=== PATIENT | male | born 1970 | race Caucasian/White ===

== ENCOUNTER 2016-06-01 11:43 | Emergency (ER) | payer BC, OTHER ==
--- NOTE | 2016-06-01 12:17 | EDM.PDOC ---
ED HISTORY OF PRESENT ILLNESS - General Chief Complaint: Chest Pain Stated Complaint: CHEST PAIN Time Seen by Provider: 06/01/16 12:16 Source of Information: Reports: Patient History Limitations: Reports: No limitations - History of Present Illness INITIAL COMMENTS - FREE TEXT/NARRATIVE: 45-year-old male presents the ED for evaluation and diffuse left precordial chest pain that is radiating up into the left lateral neck to as high as he is year-old and mastoid process and left facial cheek. Also feels pain pressure discomfort in the left shoulder and left arm radiating down towards the elbow. It also radiates through to the scapula area on the right on the left side. Patient has known coronary disease and in December of this last year underwent 4 stent placement. He did have some discomfort impromptu afterwards and in fact underwent a second angiogram to make sure that none of the stents had occluded. They were all found to be patent. He remains Effient 10mg od and a baby aspirin daily. Reports that he has not missed any medication doses.patient symptoms started last evening and he took 2 nitroglycerin tabs which seemed to ease the chest discomfort substantially but never took it away. He took another further tablet this morning again with some relief of the discomfort. Has no other symptoms in terms of feeling short of breath dizzy lightheaded nausea or vomiting. States he was just on vacation and was actively swimming and getting back into shape and had no troubles with chest pain during exertion. Symptom Onset Date: 05/31/16 Symptom Onset Time: 19:00 Timing/Duration: Reports: Hour(s):, Constant, Getting worse, Gradual onset Severity: moderate Location, General: Reports: chest (left side of neck left back left upper extremity shoulder down to the elbow.), upper extremity, left Quality: Reports: Ache, Pressure, Other (tightness mostly in the precordial aspect of his chest.) Improves with: Reports: Other (nitroglycerin x2 tablets last they did ease the discomfort substantially and again one tablet this morning seemed to ease it substantially as well. He never took it away but it reduced it from a 5 to a one.) Worsens with: Reports: None Context, General: Denies: Activity (he did say that movement or walking makes it necessary worse today.), Exercise, Lifting, Sick contact, Trauma, Other Associated Symptoms (General): Reports: chest pain. 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 Has been taking the Effient as prescribed) - Related Data Allergies/ADRs: Allergies Allergy/AdvReac Type Severity Reaction Status Date / Time No Known Allergies Allergy Verified 12/13/15 10:52 Home Meds: Home Meds Aspirin 81 mg PO DAILY 12/02/15 [History] Nitroglycerin [Nitrostat] 0.4 mg SL Q10M PRN 12/02/15 [History] Prasugrel HCl [Effient] 10 mg PO DAILY 12/02/15 [History] Metoprolol Succinate [Toprol XL] 25 mg PO DAILY 12/13/15 [History] Prasugrel HCl [Effient] 10 mg PO DAILY 06/01/16 [History] Rosuvastatin Calcium [Crestor] 40 mg PO DAILY 06/01/16 [History] amLODIPine Besylate [Norvasc] 2.5 mg PO DAILY 06/01/16 [History] predniSONE [Deltasone] 20 mg PO ASDIRECTED #15 tablet 06/01/16 [Rx] Past Medical History HEENT History: Reports: None Cardiovascular History: Reports: None, CAD Respiratory History: Reports: Other (see below) Other Respiratory History: kilebsiella pneumonia Gastrointestinal History: Reports: Cholelithiasis Genitourinary History: Reports: Prostate disorder, Renal calculus Musculoskeletal History: Reports: None Neurological History: Reports: None Psychiatric History: Reports: None Endocrine/Metabolic History: Reports: None Hematologic History: Reports: None Immunologic History: Reports: None Oncologic (Cancer) History: Reports: None Dermatologic History: Reports: None - Infectious Disease History Infectious Disease History: Reports: Chicken pox - Past Surgical History Head Surgeries/Procedures: Reports: None Cardiovascular Surgical History: Reports: Coronary artery stent Male Surgical History: Reports: Lithotripsy ([facility]) Social & Family History - Tobacco Use Smoking Status *Q: Former Smoker Month Tobacco Last Used: 9 yrs - Caffeine Use Caffeine Use: Reports: Coffee Other Caffeine Use: decaf - Recreational Drug Use Recreational Drug Use: No - Living Situation & Occupation Living situation: Reports: Occupation: employed ED ROS GENERAL - Review of Systems Review Of Systems: See Below Constitutional: Denies: fever, chills, malaise, weakness, fatigue, decreased appetite, weight loss HEENT: Reports: No symptoms Respiratory: Reports: No Symptoms Cardiovascular: Reports: Chest pain, Blood pressure problem (see history of present illness). Denies: Claudication (pressure is usually well controlled but it is elevated at the time of initial examination.), Lightheadedness, Orthopnea Endocrine: Reports: no symptoms GI/Abdominal: Reports: No symptoms : Reports: no symptoms Musculoskeletal: Reports: no symptoms Skin: Reports: no symptoms Neurological: Reports: Paresthesia Psychiatric: Reports: No symptoms Hematologic/Lymphatic: Reports: no symptoms ED EXAM, GENERAL - Physical Exam Exam: See Below Exam Limited By: No limitations General Appearance: alert, WD/WN, anxious, mild distress Eye Exam: bilateral eye: nystagmus Throat/Mouth: Normal inspection, Normal lips, Normal teeth, Normal oropharynx Head: atraumatic, normocephalic Neck: normal inspection, supple, non-tender, full range of motion. No: lymphadenopathy (L), lymphadenopathy (R) Respiratory/Chest: no respiratory distress, lungs clear, normal breath sounds, no accessory muscle use, other (cannot elicit any chest wall pain or pain in the rotator cuff tendons of the left shoulder to account for his current pain syndrome.) Cardiovascular: normal peripheral pulses, regular rate, rhythm, no edema, no gallop, no JVD, no murmur, no rub. No: JVD Peripheral Pulses: 2+: radial (L), radial (R), posterior tibial (L), posterior tibial (R), dorsalis pedis (L), dorsalis pedis (R) GI/Abdominal: normal bowel sounds, soft, non tender, no organomegaly, no distention Extremities: normal inspection, normal range of motion, non-tender, normal capillary refill, joint swelling Neurological: alert, oriented, CN II-XII intact, normal cognition Psychiatric: normal affect, normal mood Skin Exam: Warm, Dry, Intact, Normal color, No rash EKG INTERPRETATION EKG Date: 06/01/16 Time: 11:55 Rhythm: NSR Rate (beats/min): 70 [place]: normal P-wave: present QRS: normal ST-T: normal QT: normal EKG Interpretation Comments: no signs of ischemia. Normal ECG Course - Vital Signs Last Recorded V/S: Last Vital Signs Temp 36.3 C 06/01/16 11:57 Pulse 70 06/01/16 15:44 Resp 18 06/01/16 11:57 BP 133/78 06/01/16 15:44 Pulse Ox 98 06/01/16 15:44 - Orders/Labs/Meds Labs: Laboratory Tests 06/01/16 06/01/16 06/01/16 Range/Units 11:25 11:25 11:25 WBC 6.62 (4.23-9.07) K/mm3 RBC 4.97 (4.63-6.08) M/mm3 Hgb 14.6 (13.7-17.5) gm/L Hct 41.3 (40.1-51.0) % MCV 83.1 (79.0-92.2) fl MCH 29.4 (25.7-32.2) pg MCHC 35.4 (32.2-35.5) g/dl RDW Std Deviation 36.5 (35.1-43.9) fL Plt Count 200 (163-337) K/mm3 MPV 9.5 (9.4-12.3) fl Neutrophils % (Manual) 74 H (40-60) % Band Neutrophils % 0 (0-10) % Lymphocytes % (Manual) 26 (20-40) % Atypical Lymphs % 0 % Monocytes % (Manual) 0 L (2-10) % Eosinophils % (Manual) 0 L (0.8-7.0) % Basophils % (Manual) 0 L (0.2-1.2) Platelet Estimate Adequate RBC Morph Comment Normal Sodium 141 (136-145) mEq/L Potassium 3.7 (3.5-5.1) mEq/L Chloride 103 (98-107) mEq/L Carbon Dioxide 28 (21-32) mEq/L Anion Gap 13.7 (5-15) BUN 23 H (7-18) mg/dL Creatinine 1.0 (0.7-1.3) mg/dL Est Cr Clr Drug Dosing 104.31 mL/min Estimated GFR (MDRD) > 60 (>60) mL/min BUN/Creatinine Ratio 23.0 H (14-18) Glucose 92 (74-106) mg/dL Calcium 9.4 (8.5-10.1) mg/dL Total Bilirubin 0.6 (0.2-1.0) mg/dL AST 22 (15-37) U/L ALT 43 (16-63) U/L Alkaline Phosphatase 60 (46-116) U/L CK-MB (CK-2) < 0.5 (0-3.6) ng/ml Troponin I < 0.017 (0.00-0.056) ng/mL C-Reactive Protein < 0.2 (<1.0) mg/dL B-Natriuretic Peptide < 15 (0-100) pg/mL Total Protein 7.3 (6.4-8.2) g/dl Albumin 4.1 (3.4-5.0) g/dl Globulin 3.2 gm/dL Albumin/Globulin Ratio 1.3 (1-2) Meds: Medications Discontinued Medications Generic Name Dose Route Start Last Admin Trade Name Freq PRN Reason Stop Dose Admin Aspirin 324 mg 06/01/16 12:27 06/01/16 12:45 Aspirin PO 06/01/16 12:28 324 mg ONETIME ONE Administration Nitroglycerin/Dextrose 25 mg in 250 mls @ 6 mls/hr 06/01/16 12:30 06/01/16 12 :57 Nitroglycerin 25 Mg/D5w 250 Ml IV 10 mcg/min ASDIRECTED WALKER 6 mls/hr 10 MCG/MIN Administration Sodium Chloride 1,000 mls @ 100 mls/hr 06/01/16 12:30 06/01/16 12:38 Normal Saline IV 100 mls/hr ASDIRECTED [facility] Administration - Radiology Interpretation Free Text/Narrative:: 45-year-old male presents the ED with diffuse left precordial chest discomfort particularly upper left anterior chest radiating up into the left lateral neck mastoid process and given some numbness and tingling in his left facial cheek. Associated pressure discomfort in the left shoulder and states distribution of the scapula. Also pain in the left upper arm shoulder radiating down towards his elbow. Of note the patient on routine screening failed stress test has a strong family history of heart disease. In December of this year he underwent 4 stent placement . [facility] in [facility] by Dr. Pickens. He did have some discomfort afterwards and there was some concern about possible stent occlusion and had a second angiogram which proved all the stents were patent.however this discomfort started last night about 7:00 it has persisted. It eased up substantially after 2 nitroglycerin tablets last night slept not too badly. However this morning the pressure is back again and again took another nitroglycerin tablet with some improvement of symptoms. He therefore came to the ED for cardiac workup. ECG done here shows no signs of ischemia sinus at 70 per minute. BP is 133 /94.it was 158 101 when he came into the ED. Plan one view chest x-ray routine labs to include cardiac markers. Given 4 baby aspirin chewed. Will be started on nitro drip at 10 mcg per minute. - Re-Assessments/Exams Free Text/Narrative Re-Assessment/Exam: 06/01/16 13:10:chest x-ray portable he is completely normal with normal sized cardiac silhouette and clear lung rolle.. 06/01/16 13:34 labs are back reveal normal white count at 6.62 with 74% neutrophils and no bands. Hemoglobin is 14.6 hematocrit of 41.3 platelets 200, 000. Chemistries today shows a sodium of 141 potassium of 3.7. Chloride 103 bicarbonate 28. Creatinine is 1.0. Cardiac markers show a CK-MB of less than 0.5 and troponin of less than 0.017. CRP is less than 0.2 and BNP is less than 15. Therefore at this time there is no active enhancing evidence that his chest discomfort is secondary to cardiac disease. Nitro drip will be stopped. 06/01/16 14:00: she'll be placed on a short course of Deltasone 20 mg with breakfast and supper for 5 days and then one tablet in the morning only for further 5 days to relieve chest wall inflammation. NSAIDs are relatively contraindicated due to her being on Effient. Followup with her normal care provider in 3-5 days time if not markedly improved Departure - Departure Time of Disposition: 14:19 Disposition: Home, Self-Care 01 Condition: fair Clinical Impression: Non-cardiac chest pain Prescriptions: predniSONE [Deltasone] 20 mg PO ASDIRECTED #15 tablet Instructions: Nonspecific Chest Pain, [id number] Referrals: Neftali Sultana Jr, MD [Primary Care Provider] - Forms: ED Department Discharge Additional Instructions: evaluation in the emergency room today in regards to diffuse left precordial chest discomfort radiating up into the left lateral neck and into the left shoulder blade area as well as into the left shoulder and arm down towards the elbow. The pain is certainly characteristic of potential heart pain. The history of recent 4 point cardiac stent placement in December. ECG did not show any signs of heart attack or ischemia changes. Chest x-ray was completely normal. Lab tests also proved to be completely normal with cardiac markers all reported at zero. Therefore chest pain does not appear to be of heart origin. It appears to be due to inflammation likely of nerves within the chest wall which may or may not be related to the cardiac procedures carried out in December. They can certainly be viral in origin as well. Due to been on Effient she cannot take Motrin or Aleve or other anti-inflammatories. Therefore suggested a short course of Deltasone / steroid 20 mg with breakfast and supper for 5 days then one tab in the morning only for further 5 days to relieve pain and inflammation. It is okay to take Tylenol as well for pain relief as needed. See what happens over the next 3-4 days am hoping the inflammation settles down nicely for you. If the pain worsens or fails to improve in 3-4 days' time and further evaluation should be carried out with either your doctor or return to the ED.
[2016-06-01] MEDS ORDERED: Aspirin 81 MG Tab.Chew PO ONE (12:27)
[2016-06-01] MEDS ORDERED: Sodium Chloride 0.9% 1,000 ML IV SCH (12:30)
[2016-06-01] MEDS ORDERED: Nitroglycerin/D5W 25 MG/250 ML BOTTLE IV SCH (12:30)
--- NOTE | 2016-06-01 13:37 | CR ---
Chest: Portable view of the chest was obtained. Comparison: Previous chest x-ray of 12/02/15. Heart size and mediastinum are normal. Lungs are clear. Minimal scoliosis is present within the spine. Impression: 1. Nothing acute is seen on portable chest x-ray. Diagnostic code #2
[2016-06-01 15:48] VITALS: BP 133/78
== END 2016-06-01 14:40 | disposition home or self-care (01) ==
LOC: JD.ED 11:43
DX: R07.89 Other chest pain (principal); Z95.5 Presence of coronary angioplasty implant and graft; Z98.890 Other specified postprocedural states; Z87.891 Personal history of nicotine dependence; Z79.82 Long term (current) use of aspirin; Z79.899 Other long term (current) drug therapy
CPT/HCPCS: 36415; 71010; 80053; 82553; 83880; 84484; 85025; 86140; 96365; 99285; A9270; J7040; 99284

== ENCOUNTER 2016-12-20 19:40 | Emergency (ER) | payer BC ==
[2016-12-20 19:51] VITALS: BP 148/98
[2016-12-20] MEDS ORDERED: Sodium Chloride 0.9% 1,000 ML IV SCH (20:15)
--- NOTE | 2016-12-20 20:17 | EDM.PDOC ---
ED HPI GENERAL MEDICAL PROBLEM - General Chief Complaint: Chest Pain Stated Complaint: CHEST PAIN Time Seen by Provider: 12/20/16 20:14 Source of Information: Reports: Patient History Limitations: Reports: No Limitations - History of Present Illness INITIAL COMMENTS - FREE TEXT/NARRATIVE: 46-year-old male presents to the ED with diffuse left precordial chest pain described as a heavy pressure sensation Exertion perhaps makes it a little bit worse. Note he has a history of coronary disease due to very high cholesterol levels. He had 4 coronary stents placed a year ago November 25, 2015. Was on Plavix for 10 months and is currently off this medication. He is on aspirin daily. Recent checkup with economics consultant indicated that his cholesterol remains too high and he was started back on Crestor. He reports sleeping poorly with some night sweats. No fever identified.feels a heaviness in his chest with associated shortness of breath. No recent travel history or history of DVT. Onset: Gradual (has been present for almost a week continuously worsened slightly as the day goes on. He has limited his physical activity in the workplace due to the chest discomfort. No known chest wall pain or injury.) Onset Date: 12/13/16 Duration: Day(s): Location: Reports: Chest (left precordial chest rating up into the left side of the neck and left arm in the deltoid muscle distribution) Quality: Reports: Ache, Pressure Severity: Moderate Improves with: Reports: None Worsens with: Reports: Other Context: Denies: Activity, Lifting, Sick Contact, Trauma, Other Associated Symptoms: Reports: Chest Pain, Malaise, Shortness of Breath. 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) (none other than his usual medications.) Left Chest Pain Score (Numeric/FACES): 6 - Related Data Allergies Allergy/AdvReac Type Severity Reaction Status Date / Time No Known Allergies Allergy Verified 12/20/16 19:53 Home Meds: Home Meds Aspirin 81 mg PO DAILY 12/02/15 [History] Nitroglycerin [Nitrostat] 0.4 mg SL Q10M PRN 12/02/15 [History] Metoprolol Succinate [Toprol XL] 25 mg PO DAILY 12/13/15 [History] Rosuvastatin Calcium [Crestor] 40 mg PO DAILY 06/01/16 [History] amLODIPine Besylate [Norvasc] 2.5 mg PO DAILY 06/01/16 [History] ClonazePAM [KlonoPIN] 1 mg PO BEDTIME PRN #10 tab 12/20/16 [Rx] Past Medical History HEENT History: Reports: None Cardiovascular History: Reports: None, CAD Respiratory History: Reports: Other (See Below) Other Respiratory History: kilebsiella pneumonia Gastrointestinal History: Reports: Cholelithiasis Genitourinary History: Reports: Prostate Disorder, Renal Calculus Musculoskeletal History: Reports: None Neurological History: Reports: None Psychiatric History: Reports: None Endocrine/Metabolic History: Reports: None Hematologic History: Reports: None Immunologic History: Reports: None Oncologic (Cancer) History: Reports: None Dermatologic History: Reports: None - Infectious Disease History Infectious Disease History: Reports: Chicken Pox - Past Surgical History Head Surgeries/Procedures: Reports: None Cardiovascular Surgical History: Reports: Coronary Artery Stent Social & Family History - Tobacco Use Smoking Status *Q: Former Smoker Used Tobacco, but Quit: Yes Month Tobacco Last Used: 9 - Caffeine Use Caffeine Use: Reports: None Other Caffeine Use: decaf - Recreational Drug Use Recreational Drug Use: No - Living Situation & Occupation Living situation: Reports: Occupation: Employed ED ROS GENERAL - Review of Systems Review Of Systems: See Below Constitutional: Reports: Malaise, Weakness, Fatigue, Night Sweats, Other. Denies: Fever, Chills HEENT: Reports: No Symptoms Respiratory: Reports: Shortness of Breath. Denies: Wheezing, Pleuritic Chest Pain, Cough, Sputum, Hemoptysis, Other Cardiovascular: Reports: Chest Pain (see history of present illness the precordial chest pain reappeared the left neck and left), Blood Pressure Problem ( arm in the deltoid muscle distribution), Dyspnea on Exertion. Denies : Claudication (chronic hypertension), Edema, Lightheadedness, Orthopnea, Palpitations Endocrine: Reports: Fatigue GI/Abdominal: Reports: No Symptoms : Reports: No Symptoms Musculoskeletal: Reports: No Symptoms Skin: Reports: No Symptoms Neurological: Reports: No Symptoms Psychiatric: Reports: No Symptoms Hematologic/Lymphatic: Reports: No Symptoms Immunologic: Reports: No Symptoms ED EXAM, GENERAL - Physical Exam Exam: See Below Exam Limited By: No Limitations General Appearance: Alert, WD/WN, No Apparent Distress Eye Exam: Bilateral Eye: Normal Inspection Head: Atraumatic, Normocephalic Neck: Normal Inspection, Supple, Non-Tender, Full Range of Motion. No: Carotid Bruit, Lymphadenopathy (L), Lymphadenopathy (R), Thyromegaly Respiratory/Chest: No Respiratory Distress, Lungs Clear, Normal Breath Sounds, No Accessory Muscle Use, Other (O2 sats are 98% on room air.) Cardiovascular: Normal Peripheral Pulses, Regular Rate, Rhythm, No Edema, No Gallop, No JVD, No Murmur, No Rub. No: Tachycardia Peripheral Pulses: 2+: Posterior Tibial (L), Posterior Tibial (R), Dorsalis Pedis (L), Dorsalis Pedis (R) GI/Abdominal: Normal Bowel Sounds, Soft, Non-Tender, No Organomegaly, No Distention, No Abnormal Bruit Back Exam: Normal Inspection, Full Range of Motion. No: CVA Tenderness (L), CVA Tenderness (R) Extremities: Normal Inspection, Normal Range of Motion, Non-Tender, No Pedal Edema, Normal Capillary Refill Neurological: Alert, Oriented, CN II-XII Intact, Normal Cognition, Normal Gait Psychiatric: Normal Affect, Normal Mood Skin Exam: Warm, Dry, Intact, Normal Color, No Rash EKG INTERPRETATION EKG Date: 12/20/16 Time: 19:50 Rhythm: NSR Rate (Beats/Min): 60 [place]: Normal P-Wave: Present QRS: Other (early R-wave transition consider right ventricular/septal hypertrophy pattern.) ST-T: Normal QT: Prolonged Course - Vital Signs Last Recorded V/S: Last Vital Signs Temp 35.6 C 12/20/16 19:47 Pulse 63 12/20/16 19:47 Resp 18 12/20/16 19:47 BP 148/98 H 12/20/16 19:47 Pulse Ox 98 12/20/16 19:47 - Orders/Labs/Meds Orders: Active Orders 24 hr Category Date Time Status EKG Documentation Completion [RC] ASDIRECTED Care 12/20/16 19:59 Active Chest 1V Frontal [CR] Stat Exams 12/20/16 20:15 Taken EKG 12 Lead [EK] Stat Ther 12/20/16 19:59 Ordered Labs: Laboratory Tests 0912/20/16 12/20/16 Range/Units 19:50 19:50 19:51 WBC 7.22 (4.23-9.07) K/mm3 RBC 4.71 (4.63-6.08) M/mm3 Hgb 14.3 (13.7-17.5) gm/L Hct 40.8 (40.1-51.0) % MCV 86.6 (79.0-92.2) fl MCH 30.4 (25.7-32.2) pg MCHC 35.0 (32.2-35.5) g/dl RDW Std Deviation 39.9 (35.1-43.9) fL Plt Count 180 (163-337) K/mm3 MPV 9.5 (9.4-12.3) fl Neut % (Auto) Cancelled Lymph % (Auto) Cancelled [place] % (Auto) Cancelled Eos % (Auto) Cancelled Baso % (Auto) Cancelled Neut # (Auto) Cancelled Lymph # (Auto) Cancelled [place] # (Auto) Cancelled Eos # (Auto) Cancelled Baso # (Auto) Cancelled Neutrophils % (Manual) 67 H (40-60) % Band Neutrophils % 0 (0-10) % Lymphocytes % (Manual) 25 (20-40) % Atypical Lymphs % 0 % Monocytes % (Manual) 6 (2-10) % Eosinophils % (Manual) 1 (0.8-7.0) % Basophils % (Manual) 1 (0.2-1.2) Manual Slide Review Cancelled Platelet Estimate Adequate RBC Morph Comment Normal PT 9.9 (8.0-13.0) SECONDS INR 0.91 D-Dimer, Quantitative (0.19-0.59) mg/L Sodium (136-145) mEq/L Potassium (3.5-5.1) mEq/L Chloride (98-107) mEq/L Carbon Dioxide (21-32) mEq/L Anion Gap (5-15) BUN (7-18) mg/dL Creatinine (0.7-1.3) mg/dL Est Cr Clr Drug Dosing Estimated GFR (MDRD) (>60) mL/min BUN/Creatinine Ratio (14-18) Glucose (74-106) mg/dL Calcium (8.5-10.1) mg/dL Total Bilirubin (0.2-1.0) mg/dL AST (15-37) U/L ALT (16-63) U/L Alkaline Phosphatase (46-116) U/L CK-MB (CK-2) < 0.5 (0-3.6) ng/ml Troponin I (0.00-0.056) ng/mL C-Reactive Protein < 0.2 (<1.0) mg/dL NT-Pro-B Natriuret Pep 43 (0-125) pg/mL Total Protein (6.4-8.2) g/dl Albumin (3.4-5.0) g/dl Globulin gm/dL Albumin/Globulin Ratio (1-2) 12/20/16 12/20/16 Range/Units 19:51 19:51 WBC (4.23-9.07) K/mm3 RBC (4.63-6.08) M/mm3 Hgb (13.7-17.5) gm/L Hct (40.1-51.0) % MCV (79.0-92.2) fl MCH (25.7-32.2) pg MCHC (32.2-35.5) g/dl RDW Std Deviation (35.1-43.9) fL Plt Count (163-337) K/mm3 MPV (9.4-12.3) fl Neut % (Auto) Lymph % (Auto) [place] % (Auto) Eos % (Auto) Baso % (Auto) Neut # (Auto) Lymph # (Auto) [place] # (Auto) Eos # (Auto) Baso # (Auto) Neutrophils % (Manual) (40-60) % Band Neutrophils % (0-10) % Lymphocytes % (Manual) (20-40) % Atypical Lymphs % % Monocytes % (Manual) (2-10) % Eosinophils % (Manual) (0.8-7.0) % Basophils % (Manual) (0.2-1.2) Manual Slide Review Platelet Estimate RBC Morph Comment PT (8.0-13.0) SECONDS INR D-Dimer, Quantitative < 0.19 L (0.19-0.59) mg/L Sodium 143 (136-145) mEq/L Potassium 3.5 (3.5-5.1) mEq/L Chloride 105 (98-107) mEq/L Carbon Dioxide 31 (21-32) mEq/L Anion Gap 10.5 (5-15) BUN 21 H (7-18) mg/dL Creatinine 1.0 (0.7-1.3) mg/dL Est Cr Clr Drug Dosing TNP Estimated GFR (MDRD) > 60 (>60) mL/min BUN/Creatinine Ratio 21.0 H (14-18) Glucose 135 H (74-106) mg/dL Calcium 9.7 (8.5-10.1) mg/dL Total Bilirubin 0.6 (0.2-1.0) mg/dL AST 19 (15-37) U/L ALT 42 (16-63) U/L Alkaline Phosphatase 50 (46-116) U/L CK-MB (CK-2) (0-3.6) ng/ml Troponin I < 0.017 (0.00-0.056) ng/mL C-Reactive Protein (<1.0) mg/dL NT-Pro-B Natriuret Pep (0-125) pg/mL Total Protein 7.4 (6.4-8.2) g/dl Albumin 4.1 (3.4-5.0) g/dl Globulin 3.3 gm/dL Albumin/Globulin Ratio 1.2 (1-2) Meds: Medications Discontinued Medications Generic Name Dose Route Start Last Admin Trade Name Nealq PRN Reason Stop Dose Admin Aspirin 324 mg 12/20/16 20:24 12/20/16 20:28 Aspirin PO 12/20/16 20:25 324 mg ONETIME ONE Administration Clonazepam 1 mg 12/20/16 21:40 12/20/16 21:54 Klonopin PO 12/20/16 21:41 1 mg ONETIME ONE Administration Sodium Chloride 1,000 mls @ 125 mls/hr 12/20/16 20:15 12/20/16 20:25 Normal Saline IV 125 mls/hr ASDIRECTED WALKER Administration Nitroglycerin/Dextrose 50 mg in 500 mls @ 6 mls/hr 12/20/16 20:30 12/20/16 21 :21 Nitroglycerin 25 Mg/D5w 250 Ml IV 10 mcg/min ASDIRECTED WALKER 6 mls/hr 10 MCG/MIN Administration - Radiology Interpretation Free Text/Narrative:: 46-year-old male presents the ED with reported left precordial chest pain rating up into the left lateral neck and shoulder and deltoid muscle distribution for the better part of a week. Patient has a history of coronary disease requiring for stent placement a year ago without emboli. His father at age 40 from [place]. Apparently his cholesterol is very high he's never been a smoker. Examination reveals that he is hypertensive at present. ECG does not show any signs of acute ischemic change. Patient was on Plavix up until 2 months ago he took it for 10 months after stent placement. He is currently on aspirin only. Examination essentially is normal.plan routine labs will be treated as if myocardial infarction until known for sure. Nitro drip started 10 cg/min.. Will repeat ASA 324 mg by mouth.routine labs including cardiac markers and CRP ordered. Also BNP but clinically there is no signs of failure but he reports dyspnea on minimal exertion. D-dimer is also been ordered. - Re-Assessments/Exams Free Text/Narrative Re-Assessment/Exam: 12/20/16 20:54chest x-ray done portably is within normal limits. 12/20/16 20:56 Labs are back. White count was 7.22 with differential pending. Hemoglobin is normal at 14.3. Hematocrit is 40.8 pellets are normal on 180,000. PT is 9.9 with an INR of 0.91. D-dimer is normal at less than 0.19. Chemistry shows sodium of 143 potassium low-normal at 3.5. Chloride 15 bicarbonate 31. Anion gap is 10.5 B1 is 21. Glucose mildly elevated 135. Cardiac markers reveal a CK- MB fraction of less than 0.5 staple on I is less than 0.017. C-reactive protein is less than 0.2. I.e. no abdomen maladies appreciated liver or renal function. Therefore essentially has had a normal investigation. Cause of his chest pain is unclear. Does not seem to have any chest wall pain causes. Possible anxiety and stress?. 12/20/16 21:10: spoke to the patient and his quite frankly. Advised of the negative workup for his cardiac function which was relieving to him. It appears he has been under a great deal of stress recently with travel through [facility] over a period of 3 weeks and then excessive workload when he returned back to [place]. This is resulted in very poor sleep habits particularly over the last 3-4 weeks. Therefore I suspect stress anxiety is certainly contributing to his current chest pain. He has no signs or symptoms of reflux disease. I'm therefore going to place him on clonazepam 1 mg at bedtime to help sleep on a when necessary basis. I provided him with 10 tablets is to take 1 at bedtime for the next 5 nights to achieve rest. It plans to take it easy over the weekend and get away from the workplace issues for a period of time. He will follow-up with his personal care physician if not markedly improved in a few days time. Departure - Departure Time of Disposition: 21:36 Disposition: Home, Self-Care 01 Condition: Fair Clinical Impression: Non-cardiac chest pain, Disrupted sleep-wake cycle Prescriptions: ClonazePAM [KlonoPIN] 1 mg PO BEDTIME PRN #10 tab PRN Reason: disrupted sleep pattern Instructions: Nonspecific Chest Pain, [id number], Insomnia Referrals: Neftali Sultana Jr, MD [Primary Care Provider] - Forms: ED Department Discharge Additional Instructions: Evaluation the emergency room tonight in regards to left precordial chest pain radiating up into the left side of neck and into the left arm for the better part of the last week. Fairly continuous discomfort and not necessary worsened by exertion. Associated fatigue midafternoon and disrupted sleep pattern for a lengthy period of time. Complete cardiac workup carried out in the ED because of history of needing for coronary stent placement 1 year ago. Heart tracing did not reveal any signs of ischemia or heart attack. Chest x-ray was normal. Lab tests were also negative for any elevation of cardiac markers and also negative for any blood clots in the lung. In fact blood tests were normal. You don't do not seem to have any problems with heartburn or indigestion or signs or symptoms of esophageal inflammation. Disrupted sleep pattern and stress may be the culprit in the cause of the chest discomfort. Suggest trying to cut down on work load of possible. May try clonazepam 1 mg at bedtime to aid sleep. I would suggest once daily at bedtime for about 5 days and then after that and then on an as-needed basis.follow-up with personal physician if any further problems occur or you're not improved over the next week to 10 days. - My Orders Last 24 Hours: My Active Orders 12/20/16 19:59 EKG Documentation Completion [RC] ASDIRECTED EKG 12 Lead [EK] Stat 12/20/16 20:15 Chest 1V Frontal [CR] Stat - Assessment/Plan Last 24 Hours: My Active Orders 12/20/16 19:59 EKG Documentation Completion [RC] ASDIRECTED EKG 12 Lead [EK] Stat 12/20/16 20:15 Chest 1V Frontal [CR] Stat
[2016-12-20] MEDS ORDERED: Aspirin 81 MG Tab.Chew PO ONE (20:24)
[2016-12-20] MEDS ORDERED: DEXTROSE IV SCH (20:30)
[2016-12-20] MEDS ORDERED: NITROGLYCERIN IV SCH (20:30)
[2016-12-20] MEDS ORDERED: ClonazePAM 1 MG Tab PO ONE (21:40)
--- NOTE | 2016-12-21 12:49 | CR ---
Chest: Portable view of the chest was obtained. Comparison: Previous chest x-ray of 11/01/16. Heart size and mediastinum are within normal limits. Lungs are clear. Bony structures are grossly intact. Impression: 1. Nothing acute is identified on portable chest x-ray. Diagnostic code #1
== END 2016-12-20 21:55 | disposition home or self-care (01) ==
LOC: JD.ED 19:40
DX: R07.89 Other chest pain (principal); G47.23 Circadian rhythm sleep disorder, irregular sleep wake type; Z79.82 Long term (current) use of aspirin; Z79.899 Other long term (current) drug therapy; Z87.891 Personal history of nicotine dependence
CPT/HCPCS: 36415; 71010; 80053; 82553; 83880; 84484; 85025; 85379; 85610; 86140; 93005; 96361; 96365; 99285; A9270; J7040

== ENCOUNTER 2017-02-24 18:47 | Emergency (ER) | payer BC ==
[2017-02-24 19:00] VITALS: BP 154/101
[2017-02-24] MEDS ORDERED: Sodium Chloride 0.9% 10 ML Syringe FLUSH PRN (19:11)
--- NOTE | 2017-02-24 19:15 | EDM.PDOC ---
ED HPI GENERAL MEDICAL PROBLEM - General Chief Complaint: Abdominal Pain Stated Complaint: POSS KIDNEY STONE Time Seen by Provider: 02/24/17 19:00 Source of Information: Reports: Patient, RN Notes Reviewed - History of Present Illness INITIAL COMMENTS - FREE TEXT/NARRATIVE: 46-year-old male comes in with left flank and groin pain. This started yesterday over 24 hours ago, continues with worsening discomfort this evening. The pain actually did start in the left groin area at at times does radiate to the left flank but not clear to the back. The pain is sharp shooting and goes clear down to the left scrotum. In some ways this does feel similar to prior kidney stones he has had. He has had no voiding symptomatology. No fever chills and also no nausea vomiting. The pain is quite intense this evening, he is not taking anything for that. Left Groin Pain Score (Numeric/FACES): 8 - Related Data Allergies Allergy/AdvReac Type Severity Reaction Status Date / Time No Known Allergies Allergy Verified 12/20/16 19:53 Home Meds: Home Meds Aspirin 81 mg PO DAILY 12/02/15 [History] Nitroglycerin [Nitrostat] 0.4 mg SL Q10M PRN 12/02/15 [History] Metoprolol Succinate [Toprol XL] 25 mg PO DAILY 12/13/15 [History] Rosuvastatin Calcium [Crestor] 40 mg PO DAILY 06/01/16 [History] amLODIPine Besylate [Norvasc] 2.5 mg PO DAILY 06/01/16 [History] Gabapentin [Neurontin] 300 mg PO BEDTIME 02/24/17 [History] Levofloxacin [Levaquin] 500 mg PO Q24H #10 tablet 02/24/17 [Rx] metroNIDAZOLE [Flagyl] 500 mg PO Q8H #30 tablet 02/24/17 [Rx] Past Medical History HEENT History: Reports: None Cardiovascular History: Reports: None, CAD, Stents Other Cardiovascular History: 4 stents 1 yr ago Respiratory History: Reports: Other (See Below) Other Respiratory History: kilebsiella pneumonia Gastrointestinal History: Reports: Cholelithiasis Genitourinary History: Reports: Prostate Disorder, Renal Calculus Musculoskeletal History: Reports: None Neurological History: Reports: None Psychiatric History: Reports: None Endocrine/Metabolic History: Reports: None Hematologic History: Reports: None Immunologic History: Reports: None Oncologic (Cancer) History: Reports: None Dermatologic History: Reports: None - Infectious Disease History Infectious Disease History: Reports: Chicken Pox - Past Surgical History Head Surgeries/Procedures: Reports: None Cardiovascular Surgical History: Reports: Coronary Artery Stent Social & Family History - Tobacco Use Smoking Status *Q: Former Smoker Used Tobacco, but Quit: Yes Month Tobacco Last Used: 10 yr - Caffeine Use Caffeine Use: Reports: Coffee Other Caffeine Use: decaf - Recreational Drug Use Recreational Drug Use: No - Living Situation & Occupation Living situation: Reports: Occupation: Employed ED ROS GENERAL - Review of Systems Review Of Systems: See Below Constitutional: Denies: Fever, Chills HEENT: Reports: No Symptoms Respiratory: Denies: Shortness of Breath, Pleuritic Chest Pain Cardiovascular: Denies: Chest Pain GI/Abdominal: Reports: Abdominal Pain (Left lower abdomen, left groin). Denies : Constipation, Diarrhea, Nausea, Vomiting : Reports: No Symptoms Musculoskeletal: Denies: Back Pain Skin: Reports: No Symptoms Neurological: Reports: No Symptoms ED EXAM, RENAL/ - Physical Exam Exam: See Below General Appearance: Alert, Moderate Distress Eye Exam: Bilateral Eye: PERRL Throat/Mouth: Normal Inspection, Normal Oropharynx Head: No: Facial Swelling Neck: Supple, Full Range of Motion Respiratory/Chest: No Respiratory Distress, Lungs Clear, Normal Breath Sounds Cardiovascular: Regular Rate, Rhythm GI/Abdominal: Soft, Tender (Left lower abdomen). No: Guarding, Rebound Back Exam: No: CVA Tenderness (L), CVA Tenderness (R) Neurological: Alert, Oriented, No Motor/Sensory Deficits Skin Exam: Warm, Dry, Normal Color Course - Vital Signs Last Recorded V/S: Last Vital Signs Temp 98.5 F 02/24/17 18:58 Pulse 80 02/24/17 18:58 Resp 20 02/24/17 18:58 BP 154/101 H 02/24/17 18:58 Pulse Ox 96 02/24/17 18:58 - Orders/Labs/Meds Orders: Active Orders 24 hr Category Date Time Status Peripheral IV Care [RC] . DIRECTED Care 02/24/17 19:12 Active Ondansetron [Zofran] Med 02/24/17 19:22 Active 4 mg IVPUSH Q8H PRN Sodium Chloride 0.9% [Saline Flush] Med 02/24/17 19:11 Active 10 ml FLUSH ASDIRECTED PRN metroNIDAZOLE [Flagyl] Med 02/24/17 20:51 Once 500 mg PO ONETIME ONE Peripheral IV Insertion Adult [OM.PC] Stat Oth 02/24/17 19:11 Ordered Medication Orders Ondansetron HCl (Zofran) 4 mg IVPUSH Q8H PRN PRN Reason: Nausea Last Admin: 02/24/17 19:38 Dose: 4 mg Sodium Chloride (Saline Flush) 10 ml FLUSH ASDIRECTED PRN PRN Reason: Keep Vein Open Last Admin: 02/24/17 19:38 Dose: 10 ml Labs: Laboratory Tests 02/24/17 02/24/17 02/24/17 Range/Units 19:30 19:30 19:35 WBC 8.41 (4.23-9.07) K/mm3 RBC 4.71 (4.63-6.08) M/mm3 Hgb 14.1 (13.7-17.5) gm/L Hct 39.9 L (40.1-51.0) % MCV 84.7 (79.0-92.2) fl MCH 29.9 (25.7-32.2) pg MCHC 35.3 (32.2-35.5) g/dl RDW Std Deviation 37.2 (35.1-43.9) fL Plt Count 169 (163-337) K/mm3 MPV 9.4 (9.4-12.3) fl Neut % (Auto) 70.7 H (34.0-67.9) % Lymph % (Auto) 19.9 L (21.8-53.1) % [place] % (Auto) 7.4 (5.3-12.2) % Eos % (Auto) 1.7 (0.8-7.0) Baso % (Auto) 0.2 (0.1-1.2) % Neut # (Auto) 5.95 H (1.78-5.38) K/mm3 Lymph # (Auto) 1.67 (1.32-3.57) K/mm3 [place] # (Auto) 0.62 (0.30-0.82) K/mm3 Eos # (Auto) 0.14 (0.04-0.54) K/mm3 Baso # (Auto) 0.02 (0.01-0.08) K/mm3 Sodium 142 (136-145) mEq/L Potassium 3.4 L (3.5-5.1) mEq/L Chloride 104 (98-107) mEq/L Carbon Dioxide 29 (21-32) mEq/L Anion Gap 12.4 (5-15) BUN 12 (7-18) mg/dL Creatinine 1.0 (0.7-1.3) mg/dL Est Cr Clr Drug Dosing 103.20 mL/min Estimated GFR (MDRD) > 60 (>60) mL/min BUN/Creatinine Ratio 12.0 L (14-18) Glucose 93 (74-106) mg/dL Calcium 9.2 (8.5-10.1) mg/dL Total Bilirubin 1.1 H (0.2-1.0) mg/dL AST 20 (15-37) U/L ALT 34 (16-63) U/L Alkaline Phosphatase 57 (46-116) U/L Total Protein 7.4 (6.4-8.2) g/dl Albumin 4.0 (3.4-5.0) g/dl Globulin 3.4 gm/dL Albumin/Globulin Ratio 1.2 (1-2) Urine Color Yellow (Yellow) Urine Appearance Slt cloudy H (Clear) Urine pH 7.5 (5.0-8.0) Ur Specific [place] 1.020 (1.005-1.030) Urine Protein Negative (Negative) Urine Glucose (UA) Negative (Negative) Urine Ketones Negative (Negative) Urine Occult Blood Negative (Negative) Urine Nitrite Negative (Negative) Urine Bilirubin Negative (Negative) Urine Urobilinogen 0.2 (0.2-1.0) Ur Leukocyte Esterase Negative (Negative) Urine RBC Not seen (0-5) /hpf Urine WBC 0-5 (0-5) /hpf Ur Epithelial Cells 0-5 (0-5) /hpf Urine Bacteria Rare (FEW) /hpf Urine Mucus Not seen (FEW) /hpf Meds: Medications Generic Name Dose Route Start Last Admin Trade Name Freq PRN Reason Stop Dose Admin Ondansetron HCl 4 mg 02/24/17 19:22 02/24/17 19:38 Zofran IVPUSH 4 mg Q8H PRN Administration Nausea Sodium Chloride 10 ml 02/24/17 19:11 02/24/17 19:38 Saline Flush FLUSH 10 ml ASDIRECTED PRN Administration Keep Vein Open Discontinued Medications Generic Name Dose Route Start Last Admin Trade Name Gladis PRN Reason Stop Dose Admin Hydromorphone HCl 1 mg 02/24/17 19:22 02/24/17 19:38 Dilaudid IVPUSH 02/24/17 19:23 1 mg ONETIME ONE Administration Sodium Chloride 500 mls @ 999 mls/hr 02/24/17 19:22 02/24/17 19:38 Normal Saline IV 02/24/17 19:52 999 mls/hr .BOLUS ONE Administration Levofloxacin 750 mg 02/24/17 20:49 Levaquin PO 02/24/17 20:50 Q24H ONE - Re-Assessments/Exams Free Text/Narrative Re-Assessment/Exam: 02/24/17 20:52 CT was done primarily rule in or out kidney stone. There was no kidney stone present in the ureter, no hydronephrosis but CT does show inflammatory signs of diverticulitis. That certainly does fit his symptomatology pattern. We'll treat with oral Cipro and Levaquin now. He is doing much better after Dilaudid 1 mg IV. Discharge instructions as documented Departure - Departure Time of Disposition: 20:53 Disposition: Home, Self-Care 01 Condition: Fair Clinical Impression: Diverticulitis large intestine Qualifiers: Diverticulitis bleeding: without bleeding Diverticulitis complication: without perforation or abscess Qualified Code(s): K57.32 - Diverticulitis of large intestine without perforation or abscess without bleeding - Discharge Information Prescriptions: Levofloxacin [Levaquin] 500 mg PO Q24H #10 tablet metroNIDAZOLE [Flagyl] 500 mg PO Q8H #30 tablet Referrals: Neftali Sultana Jr, MD [Primary Care Provider] - Forms: ED Department Discharge Additional Instructions: Clear liquids and bland diet as tolerated, Tylenol every 6-8 hours as needed for mild to moderate discomfort or hydrocodone if needed for more severe pain, do not take Tylenol and hydrocodone at the same time, do not drive or work when taking hydrocodone. Levaquin 500 mg daily. You have been given an initial dose of 750 mg this evening here in the ED. Flagyl 500 mg 3 times daily with your next dose tomorrow morning. Continue those antibiotics for 10 days or until gone. If still in town follow-up with your regular medical provider in 3-4 days for recheck, return to ED if symptoms worsening in any way. - My Orders Last 24 Hours: My Active Orders 02/24/17 19:11 Sodium Chloride 0.9% [Saline Flush] 10 ml FLUSH ASDIRECTED PRN Peripheral IV Insertion Adult [OM.PC] Stat 02/24/17 19:12 Peripheral IV Care [RC] . DIRECTED 02/24/17 19:22 Ondansetron [Zofran] 4 mg IVPUSH Q8H PRN 02/24/17 20:51 metroNIDAZOLE [Flagyl] 500 mg PO ONETIME ONE - Assessment/Plan Last 24 Hours: My Active Orders 02/24/17 19:11 Sodium Chloride 0.9% [Saline Flush] 10 ml FLUSH ASDIRECTED PRN Peripheral IV Insertion Adult [OM.PC] Stat 02/24/17 19:12 Peripheral IV Care [RC] . DIRECTED 02/24/17 19:22 Ondansetron [Zofran] 4 mg IVPUSH Q8H PRN 02/24/17 20:51 metroNIDAZOLE [Flagyl] 500 mg PO ONETIME ONE
[2017-02-24] MEDS ORDERED: Sodium Chloride 0.9% 500 ML IV ONE (19:22)
[2017-02-24] MEDS ORDERED: Ondansetron 4 MG/2 ML SDV IVPUSH PRN (19:22)
[2017-02-24] MEDS ORDERED: HYDROmorphone 1 MG/ML Syringe IVPUSH ONE (19:22)
--- NOTE | 2017-02-24 20:13 | CT ---
CT abdomen and pelvis Technique: Multiple axial images were obtained from above the dome of the diaphragm inferiorly through the pubic symphysis. Intravenous and oral contrast has not been utilized. Study was performed as a ureteral stone protocol. Findings: Kidneys show no hydronephrosis. Small nonobstructing calculus is noted within the mid to lower left kidney measuring about 2 mm. Minimal submillimeter calcification is noted within the upper left kidney compatible with additional nonobstructing stone. Coronary artery calcification is seen. Small portion of the visualized lung bases shows nothing acute. Small nodule identified superior to the spleen compatible with accessory splenic tissue. Liver and spleen shows no discrete abnormality. There is fatty infiltration being seen within the liver. Single large calcified gallstone noted within the gallbladder measuring approximately 2.2 cm. Pancreas is unremarkable. Aorta shows no aneurysmal dilatation with mild atherosclerotic calcification. Appendix is seen which is normal. Inflammatory change is identified around portions of the colon near the junction of the descending and sigmoid regions. This occurs in an area of diverticuli and findings are felt compatible with diverticulitis. No focal fluid collections to suggest abscess are seen at this time. No pelvic mass or adenopathy is appreciated. No free fluid is seen. Bone window settings were reviewed which shows mild degenerative change within the spine with most prominent finding being disc space narrowing at L5-S1 with vacuum disc phenomena. Impression: 1. Findings compatible with diverticulitis near the junction of the descending and sigmoid regions. 2. No findings of abscess are seen at this time. 3. Several small nonobstructing calculi within the left kidney. 4. Other findings as noted above which are nonacute. Diagnostic code #3
[2017-02-24] MEDS ORDERED: Levofloxacin 750 MG Tab PO ONE (20:49)
[2017-02-24] MEDS ORDERED: metroNIDAZOLE 500 MG Tab PO ONE (20:51)
== END 2017-02-24 20:15 | disposition home or self-care (01) ==
LOC: JD.ED 18:47
DX: K57.32 Diverticulitis of large intestine without perforation or abscess without bleeding (principal); Z79.82 Long term (current) use of aspirin; Z79.899 Other long term (current) drug therapy; Z87.891 Personal history of nicotine dependence
CPT/HCPCS: 36415; 74176; 80053; 81001; 85025; 96361; 96374; 96375; 99284; A9270; J1170; J2405; J7040; J7050

== ENCOUNTER 2017-06-04 08:47 | Emergency (ER) | payer SELFPAY ==
[2017-06-04] MEDS ORDERED: Nitroglycerin 2% Oint 1 GM UD Packet TOP ONE (09:07)
[2017-06-04] MEDS ORDERED: Sodium Chloride 0.9% 10 ML Syringe FLUSH PRN (09:07)
--- NOTE | 2017-06-04 12:39 | CR ---
Chest: Frontal view of the chest was obtained. Comparison: Prior chest x-ray of 12/20/16. Heart size and mediastinum are normal. Lungs are clear. Bony structures are grossly intact. Impression: 1. Nothing acute is seen on frontal chest x-ray. Diagnostic code #1
--- NOTE | 2017-06-04 13:35 | EDM.PDOC ---
ED HPI GENERAL MEDICAL PROBLEM - General Chief Complaint: Chest Pain Stated Complaint: CHEST PAIN AND DIZZY Time Seen by Provider: 06/04/17 09:06 Source of Information: Reports: Patient, RN Notes Reviewed - History of Present Illness INITIAL COMMENTS - FREE TEXT/NARRATIVE: 46-year-old male comes in with discomfort of anterior chest achiness and heaviness without radiation, nonspecific dizziness, right headedness and fatigue. These symptoms were present when he awakened this morning. He feels like he has "low energy no abdominal pain nausea vomiting or diaphoresis. He has not had cough fever or chills. He does have generalized achiness in addition to the anterior chest discomfort. He does have history of coronary artery disease with 4 stents placed about one year ago. Therefore heart attack is of great concern to him. He is not diabetic. He is on aspirin and Plavix in addition to his other cardiac medications. He did have a routine follow-up appointment with his rfid analyst scheduled for about 1 week ago. However he was out of town and did miss that appointment so will need to reschedule. Chest Pain Score (Numeric/FACES): 4 - Related Data Allergies Allergy/AdvReac Type Severity Reaction Status Date / Time No Known Allergies Allergy Verified 06/04/17 08:57 Home Meds: Home Meds Aspirin 81 mg PO DAILY 12/02/15 [History] Metoprolol Succinate [Toprol XL] 50 mg PO DAILY 12/13/15 [History] Rosuvastatin Calcium [Crestor] 40 mg PO DAILY 06/01/16 [History] amLODIPine Besylate [Norvasc] 2.5 mg PO DAILY 06/01/16 [History] Past Medical History HEENT History: Reports: None Cardiovascular History: Reports: None, CAD, Stents Other Cardiovascular History: 4 stents 1 yr ago Respiratory History: Reports: Other (See Below) Other Respiratory History: kilebsiella pneumonia Gastrointestinal History: Reports: Cholelithiasis Genitourinary History: Reports: Prostate Disorder, Renal Calculus Musculoskeletal History: Reports: None Neurological History: Reports: None Psychiatric History: Reports: None Endocrine/Metabolic History: Reports: None Hematologic History: Reports: None Immunologic History: Reports: None Oncologic (Cancer) History: Reports: None Dermatologic History: Reports: None - Infectious Disease History Infectious Disease History: Reports: Chicken Pox - Past Surgical History Head Surgeries/Procedures: Reports: None Cardiovascular Surgical History: Reports: Coronary Artery Stent Social & Family History - Tobacco Use Smoking Status *Q: Former Smoker Used Tobacco, but Quit: Yes Month/Year Tobacco Last Used: 10 years - Caffeine Use Caffeine Use: Reports: Coffee Other Caffeine Use: decaf - Recreational Drug Use Recreational Drug Use: No - Living Situation & Occupation Living situation: Reports: Occupation: Employed ED ROS GENERAL - Review of Systems Review Of Systems: See Below Constitutional: Reports: Malaise, Fatigue. Denies: Fever, Chills, Diaphoresis HEENT: Denies: Sinus Problem, Throat Pain Respiratory: Denies: Shortness of Breath, Wheezing, Pleuritic Chest Pain, Cough Cardiovascular: Reports: Chest Pain (feeling of achiness and heaviness anterior chest without radiation) GI/Abdominal: Denies: Abdominal Pain, Nausea, Vomiting Musculoskeletal: Denies: Neck Pain, Shoulder Pain, Arm Pain, Back Pain Skin: Reports: No Symptoms Neurological: Reports: Dizziness ED EXAM, GENERAL - Physical Exam Exam: See Below General Appearance: Alert, No Apparent Distress Throat/Mouth: Normal Inspection, Normal Oropharynx Head: Atraumatic. No: Facial Swelling Neck: Supple, Full Range of Motion. No: Lymphadenopathy (L), Lymphadenopathy (R ) Respiratory/Chest: No Respiratory Distress, Lungs Clear, Normal Breath Sounds, Chest Non-Tender Cardiovascular: Normal Peripheral Pulses, Regular Rate, Rhythm GI/Abdominal: Soft, Non-Tender Back Exam: No: CVA Tenderness (L), CVA Tenderness (R) Extremities: Normal Inspection, Pedal Edema (trace bilat). No: Leg Pain, Increased Warmth, Redness Neurological: Alert, Oriented, No Motor/Sensory Deficits Skin Exam: Warm, Dry, Normal Color EKG INTERPRETATION EKG Date: 06/04/17 Rhythm: NSR [place]: Normal P-Wave: Present QRS: Normal ST-T: Normal Course - Vital Signs Last Recorded V/S: Last Vital Signs Temp 97.6 F 06/04/17 08:54 Pulse 82 06/04/17 14:05 Resp 14 06/04/17 14:05 BP 112/88 06/04/17 14:05 Pulse Ox 95 06/04/17 14:05 - Orders/Labs/Meds Orders: Active Orders 24 hr Category Date Time Status EKG 12 Lead [EKG Documentation Completion] [RC] STAT Care 06/04/17 09:06 Active Peripheral IV Care [RC] . DIRECTED Care 06/04/17 09:07 Active Peripheral IV Insertion Adult [OM.PC] Stat Oth 06/04/17 09:06 Ordered Labs: Laboratory Tests 06/04/17 06/04/17 06/04/17 Range/Units 09:15 09:15 12:24 WBC 4.77 (4.23-9.07) K/mm3 RBC 5.04 (4.63-6.08) M/mm3 Hgb 14.8 (13.7-17.5) gm/L Hct 42.3 (40.1-51.0) % MCV 83.9 (79.0-92.2) fl MCH 29.4 (25.7-32.2) pg MCHC 35.0 (32.2-35.5) g/dl RDW Std Deviation 37.7 (35.1-43.9) fL Plt Count 175 (163-337) K/mm3 MPV 9.7 (9.4-12.3) fl Neut % (Auto) 71.4 H (34.0-67.9) % Lymph % (Auto) 16.4 L (21.8-53.1) % [place] % (Auto) 9.9 (5.3-12.2) % Eos % (Auto) 1.9 (0.8-7.0) Baso % (Auto) 0.2 (0.1-1.2) % Neut # (Auto) 3.41 (1.78-5.38) K/mm3 Lymph # (Auto) 0.78 L (1.32-3.57) K/mm3 [place] # (Auto) 0.47 (0.30-0.82) K/mm3 Eos # (Auto) 0.09 (0.04-0.54) K/mm3 Baso # (Auto) 0.01 (0.01-0.08) K/mm3 Sodium 140 (136-145) mEq/L Potassium 3.8 (3.5-5.1) mEq/L Chloride 103 (98-107) mEq/L Carbon Dioxide 27 (21-32) mEq/L Anion Gap 13.8 (5-15) BUN 12 (7-18) mg/dL Creatinine 0.9 (0.7-1.3) mg/dL Est Cr Clr Drug Dosing 114.67 mL/min Estimated GFR (MDRD) > 60 (>60) mL/min BUN/Creatinine Ratio 13.3 L (14-18) Glucose 105 (74-106) mg/dL Calcium 9.2 (8.5-10.1) mg/dL Total Bilirubin 0.8 (0.2-1.0) mg/dL AST 21 (15-37) U/L ALT 33 (16-63) U/L Alkaline Phosphatase 60 (46-116) U/L Troponin I < 0.017 < 0.017 (0.00-0.056) ng/mL Total Protein 7.5 (6.4-8.2) g/dl Albumin 4.1 (3.4-5.0) g/dl Globulin 3.4 gm/dL Albumin/Globulin Ratio 1.2 (1-2) Meds: Medications Discontinued Medications Generic Name Dose Route Start Last Admin Trade Name Freq PRN Reason Stop Dose Admin Nitroglycerin 1 gm 06/04/17 09:07 06/04/17 09:26 Nitro-Bid 2% TOP 06/04/17 09:08 1 gm ONETIME ONE Administration Sodium Chloride 10 ml 06/04/17 09:07 06/04/17 09:15 Saline Flush FLUSH 10 ml ASDIRECTED PRN Administration Keep Vein Open - Re-Assessments/Exams Free Text/Narrative Re-Assessment/Exam: 06/04/17 17:57 CXR, EKG, trop, labs normal. We did do a repeat 3 hr trop normal as well. NSR , no ectopy, discharge instr. as documented. Departure - Departure Time of Disposition: 13:43 Disposition: Home, Self-Care 01 Condition: Fair Clinical Impression: Atypical chest pain Instructions: Nonspecific Chest Pain, [id number] Referrals: Neftali Sultana Jr, MD [Primary Care Provider] - Forms: ED Department Discharge Additional Instructions: Continue aspirin, plavix, other medications as previously prescribed. See Dr David, your Building Construction Contractor as soon as possible to make up for the appt. you missed last week. Call this afternoon to reschedule. Return to ED as needed if symptoms worsening in any way. - My Orders Last 24 Hours: My Active Orders 06/04/17 09:06 EKG 12 Lead [EKG Documentation Completion] [RC] STAT Peripheral IV Insertion Adult [OM.PC] Stat 06/04/17 09:07 Peripheral IV Care [RC] . DIRECTED - Assessment/Plan Last 24 Hours: My Active Orders 06/04/17 09:06 EKG 12 Lead [EKG Documentation Completion] [RC] STAT Peripheral IV Insertion Adult [OM.PC] Stat 06/04/17 09:07 Peripheral IV Care [RC] . DIRECTED
[2017-06-04 16:59] VITALS: BP 112/88
== END 2017-06-04 14:05 | disposition home or self-care (01) ==
LOC: JD.ED 08:47
DX: R07.89 Other chest pain (principal); I25.10 Atherosclerotic heart disease of native coronary artery without angina pectoris; Z95.5 Presence of coronary angioplasty implant and graft; Z87.891 Personal history of nicotine dependence; Z79.82 Long term (current) use of aspirin; Z79.899 Other long term (current) drug therapy; Z79.02 Long term (current) use of antithrombotics/antiplatelets
CPT/HCPCS: 36415; 71045; 80053; 84484; 85025; 93005; 99285; A9270; J7050; 93010; 99284-25

== ENCOUNTER 2021-07-13 15:41 | Emergency (ER) | payer OTHER ==
[2021-07-13] MEDS ORDERED: Sodium Chloride 0.9% 10 ML Syringe FLUSH PRN (16:19)
[2021-07-13] MEDS ORDERED: Aspirin 81 MG Tab.Chew PO ONE (16:19)
[2021-07-13 18:49] VITALS: BP 155/71; PULSE 78
== END 2021-07-13 18:40 | disposition home or self-care (01) ==
LOC: JD.ED 15:41
DX: R07.89 Other chest pain (principal); R20.2 Paresthesia of skin; I25.10 Atherosclerotic heart disease of native coronary artery without angina pectoris; I10 Essential (primary) hypertension; Z79.82 Long term (current) use of aspirin
CPT/HCPCS: 36415; 70450; 71045; 80053; 84484; 85025; 85379; 93005; 99285; A9270; J3490; 93010; 99283

== ENCOUNTER 2021-09-11 09:28 | Inpatient (IN) | payer OTHER ==
[2021-09-11] MEDS ORDERED: Nitroglycerin 0.4 MG Tab.SL SL STA (10:14)
[2021-09-11] MEDS ORDERED: Nitroglycerin 0.4 MG Tab.SL SL ONE ×2 (10:31→10:42)
[2021-09-11] MEDS ORDERED: Midazolam 1 MG/ML 2 ML SDV IVPUSH ONE ×2 (11:21→12:23)
[2021-09-11 11:31] LABS: ESTIMATED GFR 91 mL/min (>60)
[2021-09-11] MEDS ORDERED: Alum Hydrox/Mag Hydrox/Simeth 30 ML, Lidocaine 2% 15 ML PO ONE ×2 (14:35)
[2021-09-11] MEDS ORDERED: amLODIPine 5 MG Tab PO ONE (14:45)
[2021-09-11] MEDS ORDERED: Lisinopril 10 MG Tab PO ONE (14:45)
[2021-09-11] MEDS ORDERED: Nitroglycerin/D5W 25 MG/250 ML BOTTLE IV SCH ×2 (15:00→16:45)
[2021-09-11] MEDS ORDERED: Nitroglycerin 2% Oint 1 GM UD Packet TOP SCH (15:30)
[2021-09-11] MEDS ORDERED: Acetaminophen 325 MG Tab PO PRN (16:34)
[2021-09-11] MEDS ORDERED: Nitroglycerin 0.4 MG Tab.SL SL PRN (16:59)
[2021-09-11] MEDS: Metoprolol Tartrate 25 MG Tab PO SCH (20:10)
[2021-09-11] MEDS ORDERED: atorvaSTATin 20 MG Tab PO SCH (21:00)
[2021-09-12] MEDS ORDERED: Aspirin 81 MG Tab.Chew PO SCH (09:00)
[2021-09-12] MEDS ORDERED: Lisinopril 20 MG Tab PO SCH (09:00)
[2021-09-12] MEDS: Metoprolol Tartrate 25 MG Tab PO SCH (09:48)
[2021-09-12] MEDS ORDERED: Nitroglycerin/D5W 25 MG/250 ML BOTTLE IV SCH (16:15)
[2021-09-12 16:44] VITALS: BP 118/89; PULSE 67
[2021-09-12] MEDS ORDERED: Metoprolol Tartrate 25 MG Tab PO SCH (21:00)
[2021-09-13] MEDS ORDERED: Aspirin 81 MG Tab.Chew PO SCH (09:00)
== END 2021-09-12 18:17 | DRG 303 ==
LOC: JD.ED 09:28 → JD.MS 15:24
PROVIDERS: ADMIT Internal Medicine; ATTEND Internal Medicine
DX: I25.118 Atherosclerotic heart disease of native coronary artery with other forms of angina pectoris (principal); E78.5 Hyperlipidemia, unspecified; I10 Essential (primary) hypertension; Z86.73 Personal history of transient ischemic attack (TIA), and cerebral infarction without residual deficits; Z79.82 Long term (current) use of aspirin; Z79.899 Other long term (current) drug therapy; Z95.5 Presence of coronary angioplasty implant and graft; Z87.442 Personal history of urinary calculi; Z87.891 Personal history of nicotine dependence; E78.00 Pure hypercholesterolemia, unspecified; N42.9 Disorder of prostate, unspecified; Z91.14 Patient's other noncompliance with medication regimen; R00.1 Bradycardia, unspecified
CPT/HCPCS: 36415; 71045; 71045-26; 78452; 78452-26; 80048; 80053; 84484; 85025; 85379; 85610; 93005; 93010; 93017; 96374; 96376; 99239; 99284; 99285-25; A9270-GY; A9500; J2250; J2785; J3490

== ENCOUNTER 2021-11-05 17:24 | Emergency (ER) | payer OTHER ==
[2021-11-05] MEDS ORDERED: Sodium Chloride 0.9% 10 ML Syringe FLUSH PRN (17:47)
[2021-11-05] MEDS ORDERED: Aspirin 81 MG Tab.Chew PO ONE (17:59)
[2021-11-05] MEDS ORDERED: Nitroglycerin/D5W 25 MG/250 ML BOTTLE IV SCH (18:00)
[2021-11-05] MEDS ORDERED: Sodium Chloride 0.9% 1,000 ML IV STA ×2 (18:23→18:24)
[2021-11-05 18:32] LABS: ESTIMATED GFR 81 mL/min (>60)
[2021-11-05] MEDS ORDERED: Morphine 2 MG/ML SYRINGE IVPUSH ONE ×2 (18:36→20:58)
[2021-11-05] MEDS ORDERED: Heparin Sodium 5,000 Units/ML Vial IVPUSH ONE (20:37)
[2021-11-05] MEDS ORDERED: Heparin Sodium/D5W 25,000 UNITS/500 ML BAG IV SCH (20:45)
[2021-11-06 08:01] VITALS: BP 126/96; PULSE 62
== END 2021-11-06 08:01 | disposition home or self-care (01) ==
LOC: JD.ED 17:24
DX: I25.110 Atherosclerotic heart disease of native coronary artery with unstable angina pectoris (principal); Z79.82 Long term (current) use of aspirin; Z79.899 Other long term (current) drug therapy; Z95.1 Presence of aortocoronary bypass graft
CPT/HCPCS: 36415; 71045; 71275; 80053; 83735; 83880; 84484; 85025; 85379; 85610; 85730; 86140; 87635; 93005; 96365; 96366; 96368; 96375; 96376; 99285; A9270; J1644; J2270; J3490; J7030; 93010; 99284; U0002

== ENCOUNTER 2021-12-12 13:52 | Emergency (ER) | payer BC, OTHER ==
[2021-12-12] MEDS ORDERED: Sodium Chloride 0.9% 10 ML Syringe FLUSH PRN (14:09)
[2021-12-12 14:17] VITALS: PULSE 63
[2021-12-12 14:56] LABS: ESTIMATED GFR 73 mL/min (>60)
[2021-12-12 19:29] VITALS: BP 138/92
== END 2021-12-12 18:00 | disposition home or self-care (01) ==
LOC: JD.ED 13:52
DX: R07.89 Other chest pain (principal); I25.810 Atherosclerosis of coronary artery bypass graft(s) without angina pectoris; E78.00 Pure hypercholesterolemia, unspecified; I10 Essential (primary) hypertension; I25.2 Old myocardial infarction; Z79.82 Long term (current) use of aspirin; Z79.899 Other long term (current) drug therapy
CPT/HCPCS: 36415; 71045; 80053; 83880; 84484; 85025; 85652; 93005; 99285; J3490; 93010; 99284

== ENCOUNTER 2021-12-29 10:35 | Emergency (ER) | payer BC ==
[2021-12-29] MEDS ORDERED: Aspirin 81 MG Tab.Chew PO ONE (11:16)
[2021-12-29] MEDS: Nitroglycerin 0.4 MG Tab.SL SL PRN ×3 (11:24→12:31)
[2021-12-29] MEDS ORDERED: Sodium Chloride 0.9% 1,000 ML IV SCH (11:30)
[2021-12-29 11:38] VITALS: PULSE 81
[2021-12-29 12:20] LABS: CORONAVIRUS COVID-19 NAA NEGATIVE (NEGATIVE)
[2021-12-29 12:31] VITALS: BP 115/82
[2021-12-29] MEDS ORDERED: Heparin Sodium 5,000 Units/ML Vial IVPUSH ONE (13:22)
[2021-12-29] MEDS ORDERED: Morphine 2 MG/ML SYRINGE IVPUSH ONE (13:28)
[2021-12-29] MEDS ORDERED: Heparin Sodium/D5W 25,000 UNITS/500 ML BAG IV SCH (13:30)
[2021-12-29] MEDS ORDERED: Isosorbide Mononitrate 60 MG Tab.ER PO ONE (13:41)
[2021-12-29] MEDS ORDERED: Nitroglycerin/D5W 25 MG/250 ML BOTTLE IV SCH (14:00)
[2021-12-30] MEDS ORDERED: Isosorbide Mononitrate 60 MG Tab.ER PO ONE (13:24)
== END 2021-12-29 15:00 ==
LOC: JD.ED 10:35
DX: I20.0 Unstable angina (principal); I25.10 Atherosclerotic heart disease of native coronary artery without angina pectoris; I10 Essential (primary) hypertension; I25.2 Old myocardial infarction; Z79.899 Other long term (current) drug therapy; Z79.82 Long term (current) use of aspirin; Z20.822 Contact with and (suspected) exposure to COVID-19
CPT/HCPCS: 0240U; 36415; 71045; 80053; 81003; 84484; 85025; 85379; 85610; 85730; 93005; 96365; 96366; 96368; 96375; 99285; A9270; J1644; J2270; J3490

== ENCOUNTER 2022-03-27 17:11 | Emergency (ER) | payer BC ==
[2022-03-27] MEDS ORDERED: Sodium Chloride 0.9% 10 ML Syringe FLUSH PRN (17:30)
[2022-03-27] MEDS ORDERED: Aspirin 81 MG Tab.Chew PO ONE (19:12)
[2022-03-27] MEDS: Nitroglycerin 0.4 MG Tab.SL SL SCH ×3 (19:18→19:26)
[2022-03-27] MEDS ORDERED: Morphine 4 MG/ML Syringe IVPUSH ONE (19:35)
[2022-03-27] MEDS ORDERED: Enoxaparin 100 MG/1 ML Syringe SUBCUT ONE (20:51)
[2022-03-27] MEDS ORDERED: fentaNYL 100 MCG/2 ML SDV IVPUSH PRN (20:59)
[2022-03-27] MEDS ORDERED: Morphine 4 MG/ML Syringe IVPUSH PRN (21:00)
[2022-03-28] MEDS ORDERED: Potassium Chloride 20 MEQ Tab.ER PO ONE (08:01)
[2022-03-28] MEDS ORDERED: Isosorbide Mononitrate 30 MG Tab.ER PO ONE (08:38)
[2022-03-28] MEDS ORDERED: Enoxaparin 100 MG/1 ML Syringe SUBCUT SCH (09:00)
[2022-03-28 10:03] VITALS: BP 127/92
[2022-03-28 11:29] VITALS: PULSE 65
== END 2022-03-28 10:03 | disposition home or self-care (01) ==
LOC: JD.ED 17:11
DX: I20.9 Angina pectoris, unspecified (principal); E78.00 Pure hypercholesterolemia, unspecified; I25.2 Old myocardial infarction; E03.9 Hypothyroidism, unspecified; Z86.73 Personal history of transient ischemic attack (TIA), and cerebral infarction without residual deficits; Z95.1 Presence of aortocoronary bypass graft; Z79.899 Other long term (current) drug therapy; Z79.82 Long term (current) use of aspirin
CPT/HCPCS: 36415; 71045; 80053; 83735; 83880; 84484; 85025; 85379; 85610; 85730; 93005; 96372; 96374; 96375; 96376; 99285; A9270; J1650; J2270; J3010

== ENCOUNTER 2022-08-13 18:53 | Emergency (ER) | payer BC ==
[2022-08-13] MEDS ORDERED: Sodium Chloride 0.9% 10 ML Syringe FLUSH PRN (19:51)
[2022-08-13 20:08] LABS: BASOPHILS ABSOLUTE AUTO 0.01 K/mm3 (0.01-0.08); BASOPHILS PERCENT AUTO 0.2 % (0.1-1.2); EOSINOPHILS ABSOLUTE AUTO 0.14 K/mm3 (0.04-0.54); HEMATOCRIT 40.9 % (40.1-51.0); HEMOGLOBIN 14.3 gm/dl (13.7-17.5); IMMATURE GRAN ABSOLUTE AUTO 0.03 K/mm3 (0.00-0.10); IMMATURE GRAN PERCENT AUTO 0.7 % (<=1.0); LYMPHOCYTES ABSOLUTE AUTO 1.48 K/mm3 (1.32-3.57); LYMPHOCYTES PERCENT AUTO 32.1 % (21.8-53.1); MEAN CORPUSCULAR HEMOGLOBIN 30.6 pg (25.7-32.2); MEAN CORPUSCULAR VOLUME 87.4 fl (79.0-92.2); MEAN PLATELET VOLUME 9.7 fl (9.4-12.3); MONOCYTES ABSOLUTE AUTO 0.28 K/mm3 (0.30-0.82); MONOCYTES PERCENT AUTO 6.1 % (5.3-12.2); NEUTROPHILS ABSOLUTE AUTO 2.67 K/mm3 (1.78-5.38); NEUTROPHILS PERCENT AUTO 57.9 % (34.0-67.9); PLATELET COUNT,PLT 225 K/mm3 (163-337); RED BLOOD CELL COUNT 4.68 M/mm3 (4.63-6.08); WHITE BLOOD CELL COUNT,WBC 4.61 K/mm3 (4.23-9.07)
[2022-08-13 20:24] LABS: A/G RATIO 1.3 (1-2); ALANINE AMINOTRANSFERASE,ALT 25 U/L (16-63); ALBUMIN 4.2 g/dl (3.4-5.0); ALKALINE PHOSPHATASE 62 U/L (46-116); ANION GAP 11.1 (5-15); ASPARTATE AMNIOTRANSFERASE,AST 16 U/L (15-37); BILIRUBIN TOTAL 0.6 mg/dL (0.2-1.0); BLOOD UREA NITROGEN,BUN 23 mg/dL (7-18); BUN/CREATININE RATIO 20.9 (14-18); C-REACTIVE PROTEIN <0.2 mg/dL (<1.0); CALCIUM 9.1 mg/dL (8.5-10.1); CARBON DIOXIDE,CO2 28 mEq/L (21-32); CHLORIDE,CL 103 mEq/L (98-107); CREATININE 1.1 mg/dL (0.7-1.3); EST CRCL DRUG DOSING (CG) 86.22 mL/min; ESTIMATED GFR 81 mL/min (>60); GLUCOSE RANDOM 173 mg/dL (70-99); POTASSIUM,K 3.1 mEq/L (3.5-5.1); PROTEIN TOTAL,TP 7.4 g/dl (6.4-8.2); SODIUM,NA 139 mEq/L (136-145)
[2022-08-13] MEDS: Nitroglycerin 0.4 MG Tab.SL SL ONE (20:35)
[2022-08-13] MEDS: Morphine 2 MG/ML SYRINGE IVPUSH ONE (21:30)
[2022-08-13 22:08] VITALS: BP 125/88; PULSE 62
== END 2022-08-13 22:07 | disposition home or self-care (01) ==
LOC: JD.ED 18:53
DX: R07.89 Other chest pain (principal); I25.810 Atherosclerosis of coronary artery bypass graft(s) without angina pectoris; E78.00 Pure hypercholesterolemia, unspecified; I10 Essential (primary) hypertension; I25.2 Old myocardial infarction; Z95.1 Presence of aortocoronary bypass graft; Z79.82 Long term (current) use of aspirin; Z79.899 Other long term (current) drug therapy
CPT/HCPCS: 36415; 71046; 71046-26; 80053; 83880; 84484; 85025; 85379; 86140; 96374; 99285-25; A9270-GY; J2270

== ENCOUNTER 2022-09-29 11:03 | Emergency (ER) | payer BC ==
[2022-09-29] MEDS ORDERED: Aspirin 81 MG Tab.Chew PO ONE (11:32)
[2022-09-29] MEDS ORDERED: Morphine 2 MG/ML SYRINGE IVPUSH ONE ×3 (11:32→16:19)
[2022-09-29 11:45] LABS: BASOPHILS ABSOLUTE AUTO 0.01 K/mm3 (0.01-0.08); BASOPHILS PERCENT AUTO 0.2 % (0.1-1.2); EOSINOPHILS ABSOLUTE AUTO 0.12 K/mm3 (0.04-0.54); EOSINOPHILS PERCENT AUTO 2.7 (0.8-7.0); HEMATOCRIT 40.5 % (40.1-51.0); HEMOGLOBIN 14.2 gm/dl (13.7-17.5); IMMATURE GRAN ABSOLUTE AUTO 0.01 K/mm3 (0.00-0.10); IMMATURE GRAN PERCENT AUTO 0.2 % (<=1.0); LYMPHOCYTES ABSOLUTE AUTO 1.16 K/mm3 (1.32-3.57); LYMPHOCYTES PERCENT AUTO 25.9 % (21.8-53.1); MEAN CORPUSCULAR HEMOGLOBIN 30.5 pg (25.7-32.2); MEAN CORPUSCULAR HGB CONC 35.1 g/dl (32.2-35.5); MEAN CORPUSCULAR VOLUME 87.1 fl (79.0-92.2); MEAN PLATELET VOLUME 9.7 fl (9.4-12.3); MONOCYTES ABSOLUTE AUTO 0.22 K/mm3 (0.30-0.82); MONOCYTES PERCENT AUTO 4.9 % (5.3-12.2); NEUTROPHILS ABSOLUTE AUTO 2.96 K/mm3 (1.78-5.38); NEUTROPHILS PERCENT AUTO 66.1 % (34.0-67.9); PLATELET COUNT,PLT 184 K/mm3 (163-337); RED BLOOD CELL COUNT 4.65 M/mm3 (4.63-6.08); WHITE BLOOD CELL COUNT,WBC 4.48 K/mm3 (4.23-9.07)
[2022-09-29 11:50] LABS: INR 0.98; PROTHROMBIN TIME 10.5 SECONDS (9.7-12.0)
[2022-09-29 11:51] LABS: PTT,PARTIAL THROMBOPLSTIN TIME 26.5 SECONDS (21.7-31.4)
[2022-09-29 11:54] LABS: A/G RATIO 1.2 (1-2); ANION GAP 13.3 (5-15); BILIRUBIN TOTAL 0.7 mg/dL (0.2-1.0); BUN/CREATININE RATIO 14.2 (14-18); CALCIUM 8.8 mg/dL (8.5-10.1); CREATININE 1.2 mg/dL (0.7-1.3); EST CRCL DRUG DOSING (CG) 78.14 mL/min; POTASSIUM,K 3.3 mEq/L (3.5-5.1); PROTEIN TOTAL,TP 7.3 g/dl (6.4-8.2)
[2022-09-29] MEDS ORDERED: Nitroglycerin 0.1 MG/HR Transdermal Patch TRDERM ONE (14:11)
[2022-09-29] MEDS ORDERED: Potassium Chloride 20 MEQ Tab.ER PO ONE (16:46)
[2022-09-29 19:05] VITALS: BP 116/79; PULSE 55
== END 2022-09-29 17:07 | disposition home or self-care (01) ==
LOC: JD.ED 11:03
DX: R07.9 Chest pain, unspecified (principal); I25.10 Atherosclerotic heart disease of native coronary artery without angina pectoris; I25.2 Old myocardial infarction; E78.00 Pure hypercholesterolemia, unspecified; I10 Essential (primary) hypertension; Z95.1 Presence of aortocoronary bypass graft; Z79.82 Long term (current) use of aspirin; Z79.899 Other long term (current) drug therapy
CPT/HCPCS: 36415; 71045; 80053; 84484; 85025; 85610; 85730; 93005; 96374; 96376; 99285; A9270; J2270

== ENCOUNTER 2023-05-19 12:43 | Emergency (ER) | payer BC ==
[2023-05-19 13:17] LABS: BASOPHILS PERCENT AUTO 0.4 % (0.0-1.0); EOSINOPHILS ABSOLUTE AUTO 0.1 K/mm3 (0.0-0.4); EOSINOPHILS PERCENT AUTO 0.7 % (0.0-6.0); HEMATOCRIT 39.2 % (42.0-52.0); HEMOGLOBIN 12.7 gm/dl (14.0-18.0); IMMATURE GRAN ABSOLUTE AUTO 0.04 K/mm3 (0.00-0.05); IMMATURE GRAN PERCENT AUTO 0.5 % (0.0-0.4); LYMPHOCYTES PERCENT AUTO 12.2 % (24.0-44.0); MEAN CORPUSCULAR HEMOGLOBIN 26.6 pg (28.0-32.0); MEAN CORPUSCULAR HGB CONC 32.4 g/dl (32.0-36.0); MEAN PLATELET VOLUME 9.1 fl (9.4-12.4); MONOCYTES ABSOLUTE AUTO 0.6 K/mm3 (0.0-0.8); MONOCYTES PERCENT AUTO 6.9 % (0.0-8.0); NEUTROPHILS ABSOLUTE AUTO 6.4 K/mm3 (1.8-7.7); NEUTROPHILS PERCENT AUTO 79.3 % (41.0-71.0); PLATELET COUNT,PLT 226 K/mm3 (150-400); RED BLOOD CELL COUNT 4.78 M/mm3 (4.52-5.90); WHITE BLOOD CELL COUNT,WBC 8.12 K/mm3 (3.9-11.3)
[2023-05-19 13:31] LABS: INR 1.75
[2023-05-19 13:33] LABS: PTT,PARTIAL THROMBOPLSTIN TIME 35.4 SECONDS (21.7-31.4)
[2023-05-19 13:45] LABS: A/G RATIO 0.9 (1-2); ALBUMIN 3.9 g/dl (3.4-5.0); ANION GAP 17.8 (5-15); BILIRUBIN TOTAL 0.9 mg/dL (0.2-1.0); BUN/CREATININE RATIO 11.7 (14-18); CALCIUM 9.4 mg/dL (8.5-10.1); CREATININE 1.2 mg/dL (0.7-1.3); EST CRCL DRUG DOSING (CG) 78.14 mL/min; MAGNESIUM 1.9 mg/dL (1.8-2.4); POTASSIUM,K 3.8 mEq/L (3.5-5.1); PROTEIN TOTAL,TP 8.4 g/dl (6.4-8.2)
[2023-05-19 14:21] LABS: APPEARANCE,URINE CLEAR (Clear); BILIRUBIN,URINE NEGATIVE (Negative); COLOR,URINE YELLOW (Yellow); GLUCOSE,URINE 1+ (Negative); KETONES,URINE NEGATIVE (Negative); LEUKOCYTE ESTERASE,URINE NEGATIVE (Negative); NITRITE,URINE NEGATIVE (Negative); OCCULT BLOOD,URINE NEGATIVE (Negative); PROTEIN,URINE 1+ (Negative); UROBILINOGEN,URINE 0.2 (0.2-1.0)
[2023-05-19 14:33] LABS: AMORPHOUS SEDIMENT,URINE FEW /hpf (NOT SEEN); BACTERIA,URINE FEW /hpf (FEW); EPITHELIAL CELLS,URINE 0-5 /hpf (0-5); HYALINE CASTS,URINE 0-5 /lpf (0-5); MUCUS,URINE FEW /hpf (FEW); RBC,URINE 0-5 /hpf (0-5); WBC,URINE 0-5 /hpf (0-5)
[2023-05-19] MEDS: Sodium Chloride 0.9% 100 ML IV SCH (15:00)
[2023-05-19] MEDS: Iopamidol 755 Mg/ML 100 ML Bottle IVPUSH ONE (15:00)
[2023-05-19 18:03] VITALS: BP 112/75; PULSE 106
== END 2023-05-19 18:30 | disposition home or self-care (01) ==
LOC: JD.ED 12:43
DX: R07.89 Other chest pain (principal); R55 Syncope and collapse; Z95.811 Presence of heart assist device; I11.0 Hypertensive heart disease with heart failure; I50.9 Heart failure, unspecified; I25.810 Atherosclerosis of coronary artery bypass graft(s) without angina pectoris; I25.2 Old myocardial infarction; Z86.73 Personal history of transient ischemic attack (TIA), and cerebral infarction without residual deficits; Z95.5 Presence of coronary angioplasty implant and graft; Z79.899 Other long term (current) drug therapy; Z79.82 Long term (current) use of aspirin
CPT/HCPCS: 36415; 70450; 71275; 80053; 81001; 83690; 83735; 83880; 84484; 85025; 85379; 85610; 85730; 93005; 99285; J3490; Q9967

== ENCOUNTER 2023-06-17 16:51 | Emergency (ER) | payer BC ==
[2023-06-17 17:02] VITALS: PULSE 82
[2023-06-17] MEDS: Sodium Chloride 0.9% 10 ML Syringe FLUSH PRN (17:34)
[2023-06-17 17:42] LABS: BASOPHILS PERCENT AUTO 0.6 % (0.0-1.0); EOSINOPHILS ABSOLUTE AUTO 0.2 K/mm3 (0.0-0.4); EOSINOPHILS PERCENT AUTO 3.4 % (0.0-6.0); HEMATOCRIT 36.9 % (42.0-52.0); HEMOGLOBIN 12.1 gm/dl (14.0-18.0); IMMATURE GRAN ABSOLUTE AUTO 0.01 K/mm3 (0.00-0.05); IMMATURE GRAN PERCENT AUTO 0.2 % (0.0-0.4); LYMPHOCYTES ABSOLUTE AUTO 1.4 K/mm3 (1.0-4.8); LYMPHOCYTES PERCENT AUTO 25.8 % (24.0-44.0); MEAN CORPUSCULAR HEMOGLOBIN 26.7 pg (28.0-32.0); MEAN CORPUSCULAR HGB CONC 32.8 g/dl (32.0-36.0); MEAN CORPUSCULAR VOLUME 81.3 fl (83.0-99.0); MEAN PLATELET VOLUME 9.7 fl (9.4-12.4); MONOCYTES ABSOLUTE AUTO 0.3 K/mm3 (0.0-0.8); MONOCYTES PERCENT AUTO 5.3 % (0.0-8.0); NEUTROPHILS ABSOLUTE AUTO 3.4 K/mm3 (1.8-7.7); NEUTROPHILS PERCENT AUTO 64.7 % (41.0-71.0); PLATELET COUNT,PLT 160 K/mm3 (150-400); RED BLOOD CELL COUNT 4.54 M/mm3 (4.52-5.90)
[2023-06-17] MEDS: Nitroglycerin 0.4 MG Tab.SL SL PRN (17:59)
[2023-06-17 18:01] LABS: INR 1.72; PROTHROMBIN TIME 17.7 SECONDS (9.7-12.0)
[2023-06-17 18:16] LABS: ALBUMIN 3.7 g/dl (3.4-5.0); ANION GAP 13.6 (5-15); BILIRUBIN TOTAL 0.7 mg/dL (0.2-1.0); CALCIUM 8.9 mg/dL (8.5-10.1); EST CRCL DRUG DOSING (CG) 93.77 mL/min; POTASSIUM,K 3.6 mEq/L (3.5-5.1); PROTEIN TOTAL,TP 7.5 g/dl (6.4-8.2)
[2023-06-17 22:22] VITALS: BP 124/92
== END 2023-06-17 22:17 | disposition home or self-care (01) ==
LOC: JD.ED 16:51
DX: I25.10 Atherosclerotic heart disease of native coronary artery without angina pectoris (principal); I11.0 Hypertensive heart disease with heart failure; I50.9 Heart failure, unspecified; I25.2 Old myocardial infarction; Z95.811 Presence of heart assist device; Z79.82 Long term (current) use of aspirin; Z79.899 Other long term (current) drug therapy; Z86.19 Personal history of other infectious and parasitic diseases; Z95.1 Presence of aortocoronary bypass graft; Z95.5 Presence of coronary angioplasty implant and graft; Z79.01 Long term (current) use of anticoagulants
CPT/HCPCS: 36415; 71046; 80053; 83735; 83880; 84484; 85025; 85610; 93005; 99285; A9270; J3490

== ENCOUNTER 2023-08-29 14:54 | Emergency (ER) | payer BC ==
[2023-08-29 15:29] LABS: BASOPHILS PERCENT AUTO 0.5 % (0.0-1.0); EOSINOPHILS ABSOLUTE AUTO 0.1 K/mm3 (0.0-0.4); EOSINOPHILS PERCENT AUTO 1.8 % (0.0-6.0); HEMATOCRIT 26.9 % (42.0-52.0); HEMOGLOBIN 8.4 gm/dl (14.0-18.0); IMMATURE GRAN ABSOLUTE AUTO 0.01 K/mm3 (0.00-0.05); IMMATURE GRAN PERCENT AUTO 0.2 % (0.0-0.4); LYMPHOCYTES ABSOLUTE AUTO 1.3 K/mm3 (1.0-4.8); MEAN CORPUSCULAR HEMOGLOBIN 25.1 pg (28.0-32.0); MEAN CORPUSCULAR HGB CONC 31.2 g/dl (32.0-36.0); MEAN CORPUSCULAR VOLUME 80.5 fl (83.0-99.0); MEAN PLATELET VOLUME 10.3 fl (9.4-12.4); MONOCYTES ABSOLUTE AUTO 0.4 K/mm3 (0.0-0.8); MONOCYTES PERCENT AUTO 6.4 % (0.0-8.0); NEUTROPHILS ABSOLUTE AUTO 3.8 K/mm3 (1.8-7.7); NEUTROPHILS PERCENT AUTO 68.1 % (41.0-71.0); PLATELET COUNT,PLT 227 K/mm3 (150-400); RED BLOOD CELL COUNT 3.34 M/mm3 (4.52-5.90); WHITE BLOOD CELL COUNT,WBC 5.61 K/mm3 (3.9-11.3)
[2023-08-29 15:42] LABS: INR 1.44
[2023-08-29 15:50] LABS: A/G RATIO 1.1 (1-2); ANION GAP 11.6 (5-15); BILIRUBIN TOTAL 0.8 mg/dL (0.2-1.0); CALCIUM 8.7 mg/dL (8.5-10.1); CREATININE 1.4 mg/dL (0.7-1.3); EST CRCL DRUG DOSING (CG) 66.98 mL/min; POTASSIUM,K 3.6 mEq/L (3.5-5.1); PROTEIN TOTAL,TP 7.5 g/dl (6.4-8.2)
[2023-08-29] MEDS: Sodium Chloride 0.9% 1,000 ML IV SCH (15:58)
[2023-08-29] MEDS: Sodium Chloride 0.9% 10 ML Syringe FLUSH PRN (15:58)
[2023-08-29 19:02] VITALS: BP 100/65; PULSE 76
== END 2023-08-29 18:20 | disposition home or self-care (01) ==
LOC: JD.ED 14:54
DX: R07.9 Chest pain, unspecified (principal); I11.0 Hypertensive heart disease with heart failure; I50.9 Heart failure, unspecified; I25.10 Atherosclerotic heart disease of native coronary artery without angina pectoris; I25.2 Old myocardial infarction; Z95.1 Presence of aortocoronary bypass graft; Z95.5 Presence of coronary angioplasty implant and graft; Z79.01 Long term (current) use of anticoagulants; Z79.82 Long term (current) use of aspirin; Z79.899 Other long term (current) drug therapy; Z88.8 Allergy status to other drugs, medicaments and biological substances
CPT/HCPCS: 36415; 71045; 80053; 83690; 84484; 85025; 85610; 85730; 93005; 99285; J3490; J7030